=== PATIENT | male | born 1985 | race Two or more races ===

== ENCOUNTER 2023-06-03 16:24 | Emergency (ER) | payer MEDICAID, OTHER ==
[~2023-06-03] VITALS: Ht 182.9 cm; Wt 105.0 kg
[2023-06-03 17:03] VITALS: BP 160/117; PULSE 83; RESP 18; O2SAT 98
== END 2023-06-03 20:55 | disposition left against medical advice (07) ==
LOC: ER 16:24
DX: S09.8XXA Other specified injuries of head, initial encounter (principal); Z53.21 Procedure and treatment not carried out due to patient leaving prior to being seen by health care provider; W18.2XXA Fall in (into) shower or empty bathtub, initial encounter; Y93.E1 Activity, personal bathing and showering; Y92.89 Other specified places as the place of occurrence of the external cause; Y99.8 Other external cause status